=== PATIENT | female | born 1955 | race Caucasian/White ===

== ENCOUNTER 2021-08-01 17:34 | Emergency (ER) | payer MEDICARE, SELFPAY ==
[2021-08-01] VITALS (8 sets, daily range): BP systolic 115–176; BP diastolic 69–105; PULSE 96–103; RESP 17–26; TEMP 36.7; O2SAT 93–98; BMI 46.4
--- NOTE | 2021-08-01 18:27 | USR_ITS ---
PROCEDURE INFORMATION: Exam: US Duplex Right Lower Extremity Veins, Limited Exam date and time: 08/01/2021 6:44 PM Age: 65 years old Clinical indication: Pain; Leg, lower; Right; Additional info: Leg pain TECHNIQUE: Imaging protocol: Real-time Duplex ultrasound of the Right Lower Extremity with 2-D elkins scale, color Doppler flow and spectral waveform analysis with image documentation. Limited exam was focused on the right lower extremity veins. COMPARISON: No relevant prior studies available. FINDINGS: Right deep veins: Suboptimal compression of the distal femoral vein with normal flow, likely secondary to the patient's body habitus. The common femoral, proximal to mid femoral, proximal profunda femoral, popliteal, posterior tibial and peroneal veins are patent without thrombus. Right superficial veins: Unremarkable. Saphenofemoral junction is patent without thrombus. Soft tissues: Unremarkable. US/[place] [id number] IMPRESSION: Suboptimal compression of the distal femoral vein with normal flow, likely secondary to the patient's body habitus. Nonocclusive thrombus cannot be definitively excluded.
[2021-08-01 18:41] LABS: Basophils % 0.8 %; Eosinophils # 0.1 10^3/uL (0.0-0.8); Eosinophils % 1.3 %; Hematocrit 37.9 % (37.0-47.0); Hemoglobin 12.3 g/dL (11.5-15.3); Lymphocytes # 2.4 10^3/uL (0.8-4.8); Mean Corpuscular HGB Conc 32.5 g/dL (30.0-36.0); Mean Corpuscular Hemoglobin 30.8 pg (28.0-34.0); Mean Corpuscular Volume 94.8 fl (81-99); Mean Platelet Volume 9.8 fL (7.4-10.4); Monocytes # 0.8 10^3/uL (0.2-0.9); Monocytes % 20.2 %; Neutrophils % 15.4 %; Nucleated Red Blood Cells % 0 %; Platelet Count 233 10^3/cmm (130-400); Red Cell Distribution Width 13.2 % (12.1-15.1); White Blood Count 3.8 10^3/uL (4.0-10.0)
--- NOTE | 2021-08-01 18:47 | PC.NURSE ---
Patient right leg swelling, redness,warmth pain, noticed this morning. Hx of copd, on 5 liters of 02 at home.
--- NOTE | 2021-08-01 18:56 | XRR_ITS ---
PROCEDURE INFORMATION: Exam: XR Chest Exam date and time: 08/01/2021 7:22 PM Age: 65 years old Clinical indication: Dyspnea; Additional info: SOB TECHNIQUE: Imaging protocol: XR of the chest. Views: 1 view. COMPARISON: No relevant prior studies available. FINDINGS: Lungs: Streaky opacities at the lung bases, likely secondary to atelectasis and/or scarring. Right lower lobe calcified granuloma. Pleural spaces: Unremarkable. No pleural effusion. No pneumothorax. Heart/Mediastinum: Unremarkable. No cardiomegaly. Diaphragm: Elevated right hemidiaphragm. Bones/joints: No acute osseous abnormality. Degenerative changes. XR/XR chest 1V portable [id number] IMPRESSION: 1. No acute radiographic findings. 2. Additional findings, as above.
[2021-08-01 18:57] LABS: Alanine Aminotransferase 89 U/L (0-33); Alkaline Phosphatase 187 IU/L (35-105); Anion Gap 11.2 (5-19); Aspartate Amino Transferase 61 U/L (0-32); Blood Urea Nitrogen 10 mg/dL (8-23); Calcium 8.4 mg/dL (8.5-10.5); Carbon Dioxide 29 mmol/L (22-29); Chloride 102 mmol/L (98-107); Globulin 3.7 g/dL (1.3-4.6); Glomerular Filtration Rate 99.7 mL/min (90-130); Glucose 94 mg/dL (65-115); Osmolality Calculated 285 mOsm/kg (285-295); Potassium 4.2 mmol/L (3.5-5.1); Slide Review Slide Review Perform; Sodium 138 mmol/L (136-145); Total Bilirubin 0.2 mg/dL (0.15-1.2); Total Protein 7.7 g/dL (6.6-8.7)
[2021-08-01 18:58] LABS: Neutrophils # 0.59 10^3/uL (1.8-7.7)
[2021-08-01 19:39] LABS: Erythrocyte Sedimentation Rate 20 mm/hr (0-15)
[2021-08-01] MEDS: acetaminophen 500 mg Tablet 1000 MG PO (20:04)
[2021-08-01] MEDS: fentaNYL 50 mcg/mL INJ 2mL IVP (20:16)
--- NOTE | 2021-08-01 20:33 | CTR_ITS ---
PROCEDURE INFORMATION: Exam: CTA Chest With Contrast Exam date and time: 08/01/2021 9:05 PM Age: 65 years old Clinical indication: Shortness of breath; Patient HX: HX of R diaphragm paralysis - C/O SOB, tachy, ble swelling TECHNIQUE: Imaging protocol: Computed tomographic angiography of the chest with contrast. 3D rendering (Not supervised by radiologist): MIP and/or 3D reconstructed images were created by the technologist. Radiation optimization: All CT scans at this facility use at least one of these dose optimization techniques: automated exposure control; mA and/or kV adjustment per patient size (includes targeted exams where dose is matched to clinical indication); or iterative reconstruction. Contrast material: OMNI 350; Contrast volume: 61 ml; Contrast route: INTRAVENOUS (IV); COMPARISON: CR (CHEST, ) 08/01/2021 7:22 PM RADIATION DOSE METRICS: Total DLP (mGy-cm): 478.26 FINDINGS: Pulmonary arteries: Contrast opacification satisfactory. No intraluminal filling defect. Aorta: Unremarkable. No aneurysm or dissection. Lungs: Mild central peribronchial thickening, suggestive of airway inflammation. Mild linear stranding and groundglass, likely due to atelectasis and/or scarring. No consolidation. Right middle lobe calcified granuloma. Pleural spaces: Unremarkable. No pneumothorax. No pleural effusion. Heart: Unremarkable. No cardiomegaly. No pericardial effusion. Lymph nodes: Calcified mediastinal and right hilar lymph nodes, consistent with prior granulomatous disease. Diaphragm: Elevated right hemidiaphragm. Gallbladder and bile ducts: Status post cholecystectomy. Bones/joints: No acute osseous abnormality. Mild degenerative changes. Soft tissues: Unremarkable. CT/CT angio chest PE protcl [id number] IMPRESSION: 1. No CT evidence of pulmonary embolism. 2. Additional findings, as above.
[2021-08-01 20:48] LABS: C Reactive Protein 7.5 mg/L (0.0-4.9)
[2021-08-01] MEDS: iohexol 350 mg/mL 100 mL Btl IV (21:12)
[2021-08-01] MEDS: doxycycline 100 mg Tablet PO (21:25)
[2021-08-01] MEDS: FUROsemide 10 mg/mL SDV 4mL 40 MG IVP (21:25)
--- NOTE | 2021-08-01 21:57 | W.ED.GENADLT ---
HPI - General Adult General: Chief complaint: General Medical Stated complaint: Rt leg swellingm, redness, pain, Sob Time Seen by Provider: 08/01/21 18:27 Source: patient and family History of Present Illness: 65-year-old female with a history of COPD. She has significant decreased mobility. She presents with right leg swelling, warmth, and pain for the past day or so. It seems to have worsened over the course of the day. She has pain with movement. Of note, she has been more short of breath for the last 3 days or so. She denies any chest pain or discomfort. She has had an increased cough, with some mild sputum production. No fever. Daughter has noticed that she is more short of breath with any movement such as taking a few steps. Onset (ago): day(s) Location: lower extremity Radiation: non-radiation Severity: moderate Quality: aching Pain Consistency: constant Relieving factors: none Exacerbating factors: movement Associated symptoms: Reports cough, dyspnea, nausea, short of breath and vomiting (Heaving after coughing); Deny chest pain, confusion, diaphoresis, decreased appetite, fevers/chills, headache(s) or palpitations Review of Systems Const: Denies: fever(s), chills or diaphoresis Eyes: Denies: change in vision ENMT: Denies: throat pain Card: Denies: chest pain or palpitations Resp: Reports: dyspnea GI: Reports: nausea and vomiting (Heaving after coughing) Neuro: Denies: headache(s) or confusion PFS ED PFSH: Social History Smoking and tobacco status: former smoker Physical Exam Const: GENERAL APPEARANCE: cooperative and frail appearing HENMT: COMMON NORMALS: normocephalic, atraumatic and Normal external nose present HEAD & SCALP: normocephalic and atraumatic NOSE: Normal external nose present Eye: COMMON NORMALS: Equal, round and reactive pupils present and EOMs intact bilaterally PUPIL: Yes Equal, round and reactive pupils present Chest: COMMONS NORMALS: normal inspection of the chest Resp: COMMON NORMALS: clear to auscultation bilaterally EFFORT & INSPECTION: Yes tachypneic and Yes labored (mildly) AUSCULTATION: clear to auscultation bilaterally Cardio: COMMON NORMALS: regular rhythm RATE: tachycardic RHYTHM: regular rhythm GI: COMMON NORMALS: Normal to inspection, nondistended, normoactive bowel sounds present and Soft to palpation PALPATION: Yes Soft to palpation Extremity: NARRATIVE EXTREMITY EXAM: Exam of the right lower extremity reveals edema present. There is mild warmth. Minimal redness. There is tenderness, mainly to the calf posteriorly. No streaking. No open wound. Sensation is intact distally. Pulses intact distally Neuro: LATOYA COMA SCALE: document GCS findings [place] coma scale eye opening: Spontaneous [place] coma scale verbal response: Orientated Latoya coma scale motor response: Obey commands [place] coma scale total score: 15 Course Vital Signs: Vital signs: Vital Signs Temperature 98.1 F 08/01/21 17:59 Pulse Rate 101 H 08/01/21 19:15 Respiratory Rate 18 08/01/21 20:45 Blood Pressure 115/85 08/01/21 22:12 Pulse Oximetry 96 08/01/21 22:12 MDM - General Adult Medical Decision Making CBC reveals leukopenia, with neutropenia of 0.59. The patient is afebrile. Platelet count is normal. Hemoglobin is 12. BMP is normal. Liver enzymes are mildly elevated. CRP is only 7.5. Chest x-ray does not show any acute disease. Lower extremity Doppler was suboptimal due to suboptimal compression of the distal femoral vein, although there was normal flow demonstrated. CTA of the chest, done due to tachycardia, shortness of breath, is negative for PE. There is no effusion or increased pulmonary vascularity. There is mild linear stranding and groundglass likely due to atelectasis. Because of leukopenia/neutropenia, and a history of a recent insect/arachnoid bite to the right index finger, tick panel is sent. Also, COVID-19 is completed because of shortness of breath. Without apparent DVT, will cover for lower extremity cellulitis on the right with doxycycline, and a 3-day dose of diuretic. COVID-19 is pending. Doxycycline should also cover sputum related to COPD exacerbation as well. She does have a history of COPD, we will place her on a tapering dose of steroid. Lab Data : 08/01/21 18:30 08/01/21 18:30 Radiology Impressions Venous Duplex 08/01/21 18:27 IMPRESSION: Suboptimal compression of the distal femoral vein with normal flow, likely secondary to the patient's body habitus. Nonocclusive thrombus cannot be definitively excluded. Chest X-Ray 08/01/21 18:56 IMPRESSION: 1. No acute radiographic findings. 2. Additional findings, as above. Chest CTA 08/01/21 20:33 IMPRESSION: 1. No CT evidence of pulmonary embolism. 2. Additional findings, as above. Laboratory Results WBC 3.8 10^3/uL (4.0-10.0) L 08/01/21 18:30 RBC 4.00 10^6/uL (4.1-5.3) L 08/01/21 18:30 Hgb 12.3 g/dL (11.5-15.3) 08/01/21 18:30 Hct 37.9 % (37.0-47.0) 08/01/21 18:30 MCV 94.8 fl (81-99) 08/01/21 18:30 MCH 30.8 pg (28.0-34.0) 08/01/21 18: MCHC 32.5 g/dL (30.0-36.0) 08/01/21 18:30 RDW 13.2 % (12.1-15.1) 08/01/21 18:30 Plt Count 233 10^3/cmm (130-400) 08/01/21 18:30 MPV 9.8 fL (7.4-10.4) 08/01/21 18:30 Neut % (Auto) 15.4 % 08/01/21 18:30 Lymph % (Auto) 62.0 % 08/01/21 18:30 Dukes % (Auto) 20.2 % 08/01/21 18:30 Eos % (Auto) 1.3 % 08/01/21 18:30 Baso % (Auto) 0.8 % 08/01/21 18:30 Neut # (Auto) 0.59 10^3/uL (1.8-7.7) L* 08/01/21 18:30 Lymph # (Auto) 2.4 10^3/uL (0.8-4.8) 08/01/21 18:30 Dukes # (Auto) 0.8 10^3/uL (0.2-0.9) 08/01/21 18:30 Eos # (Auto) 0.1 10^3/uL (0.0-0.8) 08/01/21 18:30 Baso # (Auto) 0.0 10^3/uL (0.0-0.1) 08/01/21 18:30 Nucleated RBC % (auto) 0 % 08/01/21 18: Nucleated RBCs # 0.0 /100WBC 08/01/21 18:30 ESR 20 mm/hr (0-15) H 08/01/21 18:30 Sodium 138 mmol/L (136-145) 08/01/21 18:30 Potassium 4.2 mmol/L (3.5-5.1) 08/01/21 18:30 Chloride 102 mmol/L (98-107) 08/01/21 18: Carbon Dioxide 29 mmol/L (22-29) 08/01/21 18: Anion Gap 11.2 (5-19) 08/01/21 18:30 BUN 10 mg/dL (8-23) 08/01/21 18:30 Creatinine 0.6 mg/dL (0.5-0.9) 08/01/21 18: GFR Calculation 99.7 mL/min (90-130) 08/01/21 18:30 Glucose 94 mg/dL (65-115) 08/01/21 18: Calculated Osmolality 285 mOsm/kg (285-295) 08/01/21 18: Calcium 8.4 mg/dL (8.5-10.5) L 08/01/21 18:30 Total Bilirubin 0.2 mg/dL (0.15-1.2) 08/01/21 18: AST 61 U/L (0-32) H 08/01/21 18:30 ALT 89 U/L (0-33) H 08/01/21 18:30 Alkaline Phosphatase 187 IU/L (35-105) H 08/01/21 18:30 C-Reactive Protein 7.5 mg/L (0.0-4.9) H 08/01/21 18: Total Protein 7.7 g/dL (6.6-8.7) 08/01/21 18: Albumin 4.0 g/dL (3.5-5.2) 08/01/21 18: Globulin 3.7 g/dL (1.3-4.6) 08/01/21 18:30 Discharge Plan Discharge Patient Disposition: Home Clinical Impression: Cellulitis and abscess of right leg, Acute exacerbation of chronic obstructive pulmonary disease Condition: Stable Prescriptions: New Medrol (John) 4 mg tablets,dose pack See Rx Instructions .ROUTE .COMPLEX Qty: 21 0RF Rx Instructions: orally per package directions doxycycline hyclate 100 mg tablet 100 mg PO Q12H 10 Days Qty: 20 0RF furosemide 20 mg tablet 20 mg PO DAILY Qty: 3 0RF No Action montelukast [Singulair] 10 mg tablet 10 mg PO DAILY 0RF lisinopril 2.5 mg tablet 2.5 mg PO DAILY 0RF escitalopram oxalate [Lexapro] 20 mg tablet 20 mg PO DAILY 0RF budesonide-formoterol [Symbicort] 160-4.5 mcg/actuation HFA aerosol inhaler 2 puff inhalation BID 0RF pramipexole [Mirapex] 0.25 mg tablet 0.25 mg PO TID 0RF Spiriva Respimat 2.5 mcg/actuation mist 2 puff inhalation DAILY 0RF albuterol sulfate 90 mcg/actuation HFA aerosol inhaler 2 puff inhalation Q6H PRN0RF albuterol sulfate 1.25 mg/3 mL solution for nebulization 1.25 mg inhalation Q4H 0RF tizanidine 2 mg capsule 2 mg PO Q8H PRN0RF ipratropium bromide 0.02 % solution 2.5 ml inhalation QID PRN0RF sulfamethoxazole-trimethoprim [Bactrim DS] 800-160 mg tablet 1 tab PO BID 7 Days Qty: 14 0RF mupirocin 2 % ointment 1 applic topical BID Qty: 22 0RF nystatin 100,000 unit/gram cream 1 applic topical TID Qty: 30 0RF Discharge Orders: Discharge ED (Routine); Ordered 08/01/21 Ordered By: Wally Cadte Discharge Diet: Advance as tolerated Discharge Activity: Increase activity as tolerated Patient Instructions: Cellulitis (ED), COPD (Chronic Obstructive Pulmonary Disease) (ED) Activity Restrictions/Additional Instructions: Return for worsening pain or swelling despite treatment, fever greater than 100, worsening shortness of breath despite treatment, development of chest pain, any other concerning symptoms. Have blood count redrawn to check white blood cell count on Gail. Coding Level of Care Code ED Miscellaneous Machine Operator for Chg Fwd Exam Comprehensive
[2021-08-01 23:11] LABS: Adenovirus Not Detected (NOT DETECT); Chlamydia Pneumoniae Not Detected (NOT DETECT); Coronavirus 229E,HKU1,NL63,OC4 Not Detected (NOT DETECT); Human Metapneumovirus Not Detected (NOT DETECT); Human Rhinovirus/Enterovirus Not Detected (NOT DETECT); Influenza A Not Detected (NOT DETECT); Influenza A H1 Not Detected (NOT DETECT); Influenza A H1-2009 Not Detected (NOT DETECT); Influenza A H3 Not Detected (NOT DETECT); Influenza B Not Detected (NOT DETECT); Mycoplasma Pneumoniae Not Detected (NOT DETECT); Parainfluenza Virus Type 1 Not Detected (NOT DETECT); Parainfluenza Virus Type 2 Not Detected (NOT DETECT); Parainfluenza Virus Type 3 Not Detected (NOT DETECT); Parainfluenza Virus Type 4 Not Detected (NOT DETECT); Respiratory Syncytial Virus A Not Detected (NOT DETECT); Respiratory Syncytial Virus B Not Detected (NOT DETECT); SARS-COV-2 Not Detected (NOT DETECT)
[2021-08-03 15:52] LABS: Lyme AB Screen <0.90 index
[2021-08-06 16:47] LABS: E. Chaffeensis AB IGG <1:64; E. Chaffeensis AB IGM <1:20
[2021-08-07 16:22] LABS: RMSF IGG DETECTED; RMSF IGM NOT DETECTED
== END 2021-08-01 22:52 | disposition home or self-care (01) ==
PROVIDERS: Family Medicine; Emergency Provider Emergency Medicine
DX: L03.115 Cellulitis of right lower limb (principal); J44.1 Chronic obstructive pulmonary disease with (acute) exacerbation; D72.819 Decreased white blood cell count, unspecified; R00.0 Tachycardia, unspecified
CPT/HCPCS: 71045; 71275; 80053; 85025; 85651; 86140; 86618; 86666; 86757; 87635; 93971; 96374; 96375; 99284; J1940; J3010; Q9967

== ENCOUNTER 2021-10-20 12:38 | Outpatient (CLI) | payer MEDICARE, SELFPAY ==
--- NOTE | 2021-10-20 12:49 | USCV_ITS ---
Chata Chiu Age: 66 Gender: F : 1955 Exam Date: 10/20/2021 13:08 Ordering Phys: LUX TRONCOSO MD Technologist: Nguyễn Cutler [place] [facility] [place]: copd BP: 138 / 82 HR: 99 Rhythm: Sinus Technical Quality: Technically difficult study MEASUREMENTS (Male / Female) Normal Values 2D ECHO LV Diastolic Diameter PLAX 3.4 cm 4.2 - 5.9 / 3.9 - 5.3 cm LV Systolic Diameter PLAX 2.1 cm IVS Diastolic Thickness 0.9 cm 0.6 - 1.0 / 0.6 - 0.9 cm IVS Systolic Thickness 1.1 cm LVPW Diastolic Thickness 0.9 cm 0.6 - 1.0 / 0.6 - 0.9 cm LVPW Systolic Thickness 0.8 cm RV Chamber Size 2.7 cm LVOT Diameter 2.0 cm LV Ejection Fraction 2D Teich 68.6 % LV Ejection Fraction MOD 2C 65.8 % LV Ejection Fraction 2C AL 64.7 % LA Diameter 3.7 cm LA Width 3.5 cm LA Height 4.6 cm RA Width 3.0 cm RA Height 3.7 cm Aorta at Sinotubular Diameter 2.0 cm IVC Diameter 1.7 cm M-MODE Aortic Annulus Diameter 2.3 cm LA Ao Ratio MM 1.6 MV E Point Septal Separation 0.6 cm DOPPLER AV Peak Velocity 250.0 cm/s LVOT Peak Velocity 149.0 cm/s AV Area Cont Eq vti 2.3 cm squared AV Area Cont Eq pk 1.9 cm squared MV Peak Velocity 156.0 cm/s MV Area PHT 3.6 cm squared Mitral E to A Ratio 0.8 MV E' Velocity 58.0 cm/s Mitral E to MV E' Ratio 9.5 Mitral E to LV E' Lateral Ratio 13.8 Mitral E to LV E' Septal Ratio 7.3 TR Peak Velocity 503.6 cm/s TR Peak Gradient 101.4 mmHg TR Mean Velocity 395.6 cm/s TR Mean Gradient 67.7 mmHg TR Velocity Time Integral 150.0 cm Right Atrial Pressure 3.0 mmHg Pulmonary Artery Systolic Pressu 104.4 mmHg RV Acceleration Time 0.1 s RV Ejection Time 0.3 s RV AcT/ET 0.3 FINDINGS Left Ventricle Normal left ventricular size and systolic function, EF 64 %. No regional wall motion abnormalities. Grade I/IV diastolic dysfunction (abnormal relaxation filling pattern), normal to mildly elevated filling pressures. Right Ventricle Normal right ventricular size and systolic function. Right Atrium The right atrium is normal in size. Left Atrium Mildly increased left atrial size. Mitral Valve Thickened mitral valve. Trace to mild mitral valve regurgitation. Aortic Valve Thickened aortic valve. Mild aortic valve stenosis with a peak velocity of 2.54 m/s with a peak gradient of 26 and a mean gradient of 12 mmHg. The valve area was cardiac to be 2.2 cm squared Tricuspid Valve Trace tricuspid valve regurgitation. The estimated pulmonary artery peak systolic pressure was 104 mmHg. This could be an overestimation because of the poor Doppler signals . The Doppler studies need to be repeated Pulmonic Valve Pulmonic valve not well visualized. Pericardium No pericardial effusion. Aorta Normal aortic annulus size. IVC Normal inferior vena cava. CONCLUSIONS Normal left ventricular size and systolic function, EF 64 %. No regional wall motion abnormalities. Grade I/IV diastolic dysfunction (abnormal relaxation filling pattern), normal to mildly elevated filling pressures. Mild aortic valve stenosis with a peak velocity of 2.54 m/s with a peak gradient of 26 and a mean gradient of 12 mmHg. The valve area was cardiac to be 2.2 cm squared. Mildly increased left atrial size. Thickened mitral valve. Trace to mild mitral valve regurgitation. Trace tricuspid valve regurgitation. The estimated pulmonary artery peak systolic pressure was 104 mmHg. This could be an overestimation because of the poor Doppler signals . The Doppler studies need to be repeated. No similar previous studies are available for comparison Dr Erendira Dumont MD [facility] (Electronically Signed) Final Date: 20 October 2021 19:53 S
== END 2021-10-20 12:39 | disposition home or self-care (01) ==
LOC: RAD 12:40
PROVIDERS: PCP Internal Medicine; Visit Provider Internal Medicine Pulmonary Disease
DX: J44.9 Chronic obstructive pulmonary disease, unspecified (principal)
CPT/HCPCS: 93306

== ENCOUNTER 2021-12-16 08:32 | Outpatient (CLI) | payer MEDICARE, SELFPAY ==
--- NOTE | 2021-12-16 08:42 | USCV_ITS ---
Chata Chiu Age: 66 Gender: F : 1955 Exam Date: 12/16/2021 09:08 Ordering Phys: LUX TRONCOSO MD Technologist: Exam Location: [facility] – [place] Indication: rt side chest pressures BP: 132 / 74 HR: 90 Rhythm: Sinus Technical Quality: Adequate MEASUREMENTS (Male / Female) Normal Values DOPPLER AV Peak Velocity 200.0 cm/s LVOT Peak Velocity 99.0 cm/s MV Area PHT 5.0 cm squared Mitral E to A Ratio 0.8 MV E' Velocity 94.0 cm/s TR Peak Velocity 330.2 cm/s TR Peak Gradient 43.6 mmHg TV Peak E Velocity 129.7 cm/s Right Atrial Pressure 3.0 mmHg Pulmonary Artery Systolic Pressu 46.6 mmHg RV Acceleration Time 0.1 s RV Ejection Time 0.4 s RV AcT/ET 0.4 FINDINGS Left Ventricle Normal left ventricular cavity size. Normal left ventricular systolic function. Left ventricular ejection fraction is grossly estimated at 60 %. Although no diagnostic regional wall motion abnormality could be identified, this possibility cannot be completely excluded based on the study. Right Ventricle Normal right ventricular size and systolic function. RVSP could not be calculated due to incomplete tricuspid regurgitation velocity profile. Right Atrium Right atrium not well visualized. Left Atrium Normal left atrial size. Mitral Valve Mild mitral annular calcification. Structurally normal mitral valve. No mitral valve stenosis. No mitral valve regurgitation. Aortic Valve Aortic valve not well visualized. No aortic valve stenosis. No aortic valve regurgitation. Tricuspid Valve Structurally normal tricuspid valve. Trace to mild tricuspid valve regurgitation. Pulmonic Valve Pulmonic valve not well visualized. Pericardium No pericardial effusion. Aorta Aorta not well visualized. IVC Inferior vena cava not visualized. CONCLUSIONS 1. This is a technically difficult and limited study. 2. Normal left ventricular cavity size and systolic function. Left ventricular ejection fraction is grossly estimated at 60 %. Although no diagnostic regional wall motion abnormality could be identified, this possibility cannot be completely excluded based on the study. 3. Normal right ventricular size and systolic function. 4. Trace to mild tricuspid valve regurgitation. 5. Direct comparison to previous study dated 10/20/2021 is not possible due to technically difficult study. Lisa Soto MD (Electronically Signed) Final Date: 21 December 2021 09:59 S
== END 2021-12-16 08:33 | disposition home or self-care (01) ==
LOC: RAD 08:32
PROVIDERS: PCP Internal Medicine; Visit Provider Internal Medicine Pulmonary Disease
DX: I27.20 Pulmonary hypertension, unspecified (principal); R07.89 Other chest pain; I07.1 Rheumatic tricuspid insufficiency
CPT/HCPCS: 93308; 93325